=== PATIENT | male | born 1955 | race Caucasian/White ===

== ENCOUNTER 2017-10-28 09:47 | Inpatient (IN) | payer BC ==
[~2017-10-28] VITALS: Ht 175.3 cm; Wt 98.9 kg
[2017-10-28] MEDS ORDERED: SODIUM CHLORIDE 0.9% 1000ML 1,000 ML IV STA (09:55)
[2017-10-28] MEDS ORDERED: ONDANSETRON INJ 2 MG/ML 2 ML VIAL IV STA (09:55)
[2017-10-28] MEDS ORDERED: OPTIRAY 320 IV PRN (10:15)
--- NOTE | 2017-10-28 10:21 | DIAGNOSTIC IMAGING REPORT ---
SINGLE VIEW CHEST CLINICAL HISTORY: Generalized abdominal pain. FINDINGS: An AP, portable, upright chest radiograph is obtained. No prior studies are available for comparison at the time of dictation. The examination is degraded by portable technique and patient rotation. The heart is enlarged and there is atherosclerotic calcification of the thoracic aorta. The pulmonary vasculature is noncongested. Nonspecific interstitial thickening is likely chronic. There is mild elevation of left hemidiaphragm with minimal left basilar airspace opacities. The lungs are otherwise clear. No large pleural effusion or pneumothorax is seen. An accessory azygous fissure is suggested. The skeletal structures are osteopenic. The bony thorax is grossly intact. IMPRESSION: 1. Cardiomegaly without radiographic evidence of congestive failure. 2. Minimal left basilar opacities likely represent atelectasis. Clinical correlation will be required. Electronically signed by: Karlo Santos M.D. 10/28/2017 10:20 AM Dictated Date/Time: 10/28/2017 10:18 AM
[2017-10-28 10:38] LABS: BASO % 0.4 %; BASO ABS # 0.02 K/uL (0-0.2); EOS % 1.4 %; EOS ABS # 0.08 K/uL (0-0.5); HEMATOCRIT 41.3 % (42-52); HEMOGLOBIN 14.2 g/dL (14.0-18.0); IG# 0.02 K/uL (0.00-0.02); LYMPH ABS # 1.23 K/uL (1.2-3.4); MEAN CORPUSCULAR HEMOGLOBIN 35.8 pg (25-34); MEAN CORPUSCULAR HGB CONC 34.4 g/dl (32-36); MEAN PLATELET VOLUME 9.5 fL (7.4-10.4); MONO % 5.5 %; MONO ABS # 0.31 K/uL (0.11-0.59); NEUT % 70.3 %; NEUT ABS # 3.93 K/uL (1.4-6.5); PLATELET COUNT 195 K/uL (130-400); RED CELL DISTRIBUTION WIDTH CV 13.2 % (11.5-14.5); RED CELL DISTRIBUTION WIDTH SD 49.9 fL (36.4-46.3); WHITE BLOOD COUNT 5.59 K/uL (4.8-10.8)
[2017-10-28 10:46] LABS: PTT PATIENT 23.2 SECONDS (21.0-31.0)
[2017-10-28 10:53] LABS: ALBUMIN 3.5 gm/dl (3.4-5.0); ALT/SGPT 44 U/L (12-78); AST/SGOT 37 U/L (15-37); BLOOD UREA NITROGEN 16 mg/dl (7-18); CALCIUM 8.9 mg/dl (8.5-10.1); CARBON DIOXIDE 27 mmol/L (21-32); CREATININE 1.11 mg/dl (0.60-1.40); GLUCOSE 166 mg/dl (70-99); LIPASE 72 U/L (73-393); POTASSIUM 3.3 mmol/L (3.5-5.1); SODIUM 139 mmol/L (136-145)
[2017-10-28] MEDS ORDERED: OMEP40CA41 PO (10:58)
[2017-10-28] MEDS ORDERED: LMTHP PO (10:58)
[2017-10-28 10:59] LABS: ALKALINE PHOSPHATASE 61 U/L (45-117); CKMB 1.1 ng/ml (0.5-3.6); TOTAL PROTEIN 7.2 gm/dl (6.4-8.2)
[2017-10-28] MEDS ORDERED: SUNI37.5 PO (11:02)
[2017-10-28] MEDS ORDERED: ONDANSETRON INJ 2 MG/ML 2 ML VIAL ONE (13:19)
[2017-10-28] MEDS ORDERED: NURSING VERBAL MED ORDER ONE (13:30)
--- NOTE | 2017-10-28 13:49 | DIAGNOSTIC IMAGING REPORT ---
HEAD WITHOUT CONTRAST (CT) CLINICAL HISTORY: 61 years-old Male presenting with near syncope, numbness. TECHNIQUE: Multidetector CT imaging of the head was performed without the use of intravenous contrast. IV contrast: None. A dose lowering technique was used consistent with the principles of ALARA (as low as reasonably achievable). COMPARISON: None. CT DOSE (mGy.cm): The estimated cumulative dose is 2436.[address] abdomen and pelvis. FINDINGS: Casing In Line Setter topogram: Unremarkable. Ventricles and sulci normal in size. Brain parenchyma normal in appearance with preserved retana-white differentiation. No mass effect or midline shift. No hemorrhage or acute territorial infarct. No extra-axial fluid collection. Paranasal sinuses and mastoid air cells clear. Calvarium intact. IMPRESSION: 1. No acute intracranial abnormality. Electronically signed by: Akhil Aldana M.D. 10/28/2017 1:48 PM Dictated Date/Time: 10/28/2017 1:46 PM
--- NOTE | 2017-10-28 14:01 | DIAGNOSTIC IMAGING REPORT ---
CT ABD/PELVIS IV AND ORAL CONT CLINICAL HISTORY: vomiting, previous gastrectomy for tumor COMPARISON STUDY: None. TECHNIQUE: Following the IV administration of 118 mL of Optiray-320, CT scan of the abdomen and pelvis was performed from the lung bases to the proximal femurs. Images are reviewed in the axial, sagittal, and coronal planes. IV contrast was administered. There is an equivocal infiltration, and a new IV site was chosen. This explains the contrast excretion within the left kidney. A dose lowering technique was utilized adhering to the principles of ALARA. CT DOSE: 2436.58 mGy.cm FINDINGS: Lower chest: The heart is normal in size and configuration, without pericardial effusion. The lung bases and pleural spaces are clear. Liver: Postsurgical changes are present within the right lobe. There is a 36 mm hypodense mass within the right lobe of the liver. Given history of prior neoplasm, this is viewed as suspicious for a metastatic deposit. There is very minimal ductal dilatation adjacent to the postsurgical changes in the right lobe. Gallbladder: Surgically absent Spleen: Normal in size and attenuation. Pancreas: Unremarkable. Adrenal glands: There is a 21 mm left adrenal myelolipoma Kidneys: There is a diminished right-sided nephrogram. There is right-sided hydronephrosis. There is right-sided hydroureter. No right renal or ureteral calculi are visualized. The etiology of the obstruction is therefore unclear. There is an 11 mm left renal cyst. Bowel: There are no transition zones indicate bowel obstruction. There is borderline rectal wall thickening which may simply be secondary to incomplete distention. There is extensive sigmoid diverticulosis. No acute peridiverticular inflammatory changes are visualized. There are additional areas of borderline wall thickening involving the descending colon, transverse colon, and ascending colon. Peritoneum: There is no intraperitoneal free air or abdominal ascites. Vasculature: The abdominal aorta is normal in course and caliber. Adenopathy: None. Pelvic viscera: The bladder, and pelvic viscera are unremarkable. Skeletal structures: No destructive osseous lesions are seen. IMPRESSION: 1. Right renal obstruction. No ureteral calculus is visualized, and therefore the etiology of the obstruction is unclear. The findings could be secondary to a radiolucent calculus, recently passed calculus, or neoplasm. Close follow-up will be necessary 2. 33 mm mass within the right lobe of the liver. A metastatic deposit must be considered given the history of a prior primary malignancy 3. Left adrenal myelolipoma 4. Postsurgical changes involve the stomach. No evidence of bowel obstruction. No evidence of free air. Normal appendix. Diverticulosis. No evidence of acute diverticulitis 5. Borderline diffuse colonic wall thickening. Electronically signed by: Parveen Cruz M.D. 10/28/2017 2:00 PM Dictated Date/Time: 10/28/2017 1:46 PM
--- NOTE | 2017-10-28 14:41 | EMERGENCY ROOM VISIT NOTE ---
History Report prepared by Zaria: Kristopher Ashley Under the Supervision of: Dr. Luis Carlos Duke D.O. First contact with patient: 09:51 Stated Complaint: ABDOMINAL PAIN History of Present Illness The patient is a 61 year old male who presents to the Emergency Room with complaints of constant diffuse abdominal pain beginning 1.5 hours ago. He has a history of gastrointestinal stromal tumor (s/p surgery to remove tumor). He is currently receiving chemotherapy for his cancer. The patient states that he has been experiencing nausea and vomiting as well. He rates his current pain as a 10/10 in severity. Per , the patient had an episode of diaphoresis, arm numbness, and visual changes while going to the bathroom this morning. The patient denies headaches, chest pain, fevers, or leg swelling. He reports that he had dark guerrero colored stools last week. He denies recent Pepto Bismol use, but has been taking over the counter anti-diarrheals. The patient denies recent antibiotic use. He adds that he feels that he needs to urinate but is unable. Source of History: patient Onset: 1.5 hours ago Position: abdomen (diffuse) Symptom Intensity: 10/10 Timing: constant Associated Symptoms: + diaphoresis, + nausea, + vomiting, + urinary symptoms (inability to urinate), + numbness (arm), No fevers, No headache, No chest pain Note: Positive: visual changes. Negative: leg swelling. Review of Systems See HPI for pertinent positives & negatives. A total of 10 systems reviewed and were otherwise negative. Past Medical & Surgical Medical Problems: (1) GIST (gastrointestinal stromal tumor), malignant Surgical Problems: (1) History of partial gastrectomy (2) Hx of cholecystectomy Family History No pertinent family history stated. Social History Marital Status: Housing Status: lives with family Current/Historical Medications Scheduled Omeprazole (Prilosec), 40 MG PO DAILY Ranitidine (Zantac), 150 MG PO DAILY Sildenafil Citrate (Viagra), 100 MG PO PRN Sunitinib Malate (Sutent), 37.5 MG PO DAILY Scheduled PRN Diphenoxylate/Atropine (Diphenoxylate/Atropine 2.5-0.025 mg), 1 TAB PO QID PRN for Diarrhea Allergies Coded Allergies: Codeine (Unverified Allergy, Unknown, GI SYMPTOMS, 10/28/17) Physical Exam Vital Signs Date Time Temp Pulse Resp B/P (MAP) Pulse Ox O2 Delivery O2 Flow Rate FiO2 10/28/17 15:37 85 20 177/100 93 Room Air 10/28/17 14:17 88 22 174/94 95 Room Air 10/28/17 13:17 71 26 95 Room Air 10/28/17 13:16 102 10/28/17 13:01 160/90 10/28/17 12:47 71 23 10/28/17 12:46 67 20 163/87 100 Room Air 10/28/17 12:31 163/87 10/28/17 12:26 67 22 176/82 10/28/17 12:17 68 9 10/28/17 12:01 176/82 10/28/17 11:47 82 21 10/28/17 11:31 160/79 10/28/17 11:17 74 25 10/28/17 11:01 162/82 10/28/17 10:47 64 20 168/87 100 10/28/17 10:47 69 23 97 10/28/17 10:31 168/87 10/28/17 10:20 173/96 10/28/17 10:18 184/95 10/28/17 09:57 36.5 65 20 155/104 100 Room Air 10/28/17 09:55 66 10/28/17 09:50 155/104 Physical Exam GENERAL: Patient is awake, alert, and in no acute distress. Mildly anxious appearing. EYES: The conjunctivae are clear. The pupils are round and reactive. EARS, NOSE, MOUTH AND THROAT: The nose is without any evidence of any deformity. Mucous membranes are moist tongue is midline NECK: The neck is nontender and supple. RESPIRATORY: Normal respiratory effort is noted there is no evidence of wheezing rhonchi or rales CARDIOVASCULAR: Regular rate and rhythm noted there no murmurs rubs or gallops normal S1 normal S2 GASTROINTESTINAL: Moderately distended and diffusely tender. Guarding noted in the right middle and RUQ. No suprapubic tenderness to palpation. MUSCULOSKELETAL/EXTREMITIES: There is no evidence of gross deformity full range of motion is noted in the hips and shoulders SKIN: There is no obvious evidence of any rash. There are no petechiae, pallor or cyanosis noted. Trace pedal edema bilaterally. NEUROLOGIC: Patient is awake alert and oriented x3. Gait is slow but steady. Medical Decision & Procedures ER Provider Diagnostic Interpretation: Radiology results as stated below per my review and radiologist interpretation: SINGLE VIEW CHEST FINDINGS: An AP, portable, upright chest radiograph is obtained. No prior studies are available for comparison at the time of dictation. The examination is degraded by portable technique and patient rotation. The heart is enlarged and there is atherosclerotic calcification of the thoracic aorta. The pulmonary vasculature is noncongested. Nonspecific interstitial thickening is likely chronic. There is mild elevation of left hemidiaphragm with minimal left basilar airspace opacities. The lungs are otherwise clear. No large pleural effusion or pneumothorax is seen. An accessory azygous fissure is suggested. The skeletal structures are osteopenic. The bony thorax is grossly intact. IMPRESSION: 1. Cardiomegaly without radiographic evidence of congestive failure. 2. Minimal left basilar opacities likely represent atelectasis. Clinical correlation will be required. Electronically signed by: Karlo Santos M.D. 10/28/2017 10:20 AM HEAD WITHOUT CONTRAST (CT) FINDINGS: Commutator Tester topogram: Unremarkable. Ventricles and sulci normal in size. Brain parenchyma normal in appearance with preserved retana-white differentiation. No mass effect or midline shift. No hemorrhage or acute territorial infarct. No extra-axial fluid collection. Paranasal sinuses and mastoid air cells clear. Calvarium intact. IMPRESSION: 1. No acute intracranial abnormality. Electronically signed by: Akhil lAdana M.D. 10/28/2017 1:[address] ABD/PELVIS IV AND ORAL CONT FINDINGS: Lower chest: The heart is normal in size and configuration, without pericardial effusion. The lung bases and pleural spaces are clear. Liver: Postsurgical changes are present within the right lobe. There is a 36 mm hypodense mass within the right lobe of the liver. Given history of prior neoplasm, this is viewed as suspicious for a metastatic deposit. There is very minimal ductal dilatation adjacent to the postsurgical changes in the right lobe. Gallbladder: Surgically absent Spleen: Normal in size and attenuation. Pancreas: Unremarkable. Adrenal glands: There is a 21 mm left adrenal myelolipoma Kidneys: There is a diminished right-sided nephrogram. There is right-sided hydronephrosis. There is right-sided hydroureter. No right renal or ureteral calculi are visualized. The etiology of the obstruction is therefore unclear. There is an 11 mm left renal cyst. Bowel: There are no transition zones indicate bowel obstruction. There is borderline rectal wall thickening which may simply be secondary to incomplete distention. There is extensive sigmoid diverticulosis. No acute peridiverticular inflammatory changes are visualized. There are additional areas of borderline wall thickening involving the descending colon, transverse colon, and ascending colon. Peritoneum: There is no intraperitoneal free air or abdominal ascites. Vasculature: The abdominal aorta is normal in course and caliber. Adenopathy: None. Pelvic viscera: The bladder, and pelvic viscera are unremarkable. Skeletal structures: No destructive osseous lesions are seen. IMPRESSION: 1. Right renal obstruction. No ureteral calculus is visualized, and therefore the etiology of the obstruction is unclear. The findings could be secondary to a radiolucent calculus, recently passed calculus, or neoplasm. Close follow-up will be necessary 2. 33 mm mass within the right lobe of the liver. A metastatic deposit must be considered given the history of a prior primary malignancy 3. Left adrenal myelolipoma 4. Postsurgical changes involve the stomach. No evidence of bowel obstruction. No evidence of free air. Normal appendix. Diverticulosis. No evidence of acute diverticulitis 5. Borderline diffuse colonic wall thickening. Electronically signed by: Parveen Cruz M.D. 10/28/2017 2:00 PM Laboratory Results 10/28/17 10:30 Red Blood Count 3.97, Mean Corpuscular Volume 104.0, Mean Corpuscular Hemoglobin 35.8, Mean Corpuscular Hemoglobin Concent 34.4, Mean Platelet Volume 9.5, Neutrophils (%) (Auto) 70.3, Lymphocytes (%) (Auto) 22.0, Monocytes (%) ( Auto) 5.5, Eosinophils (%) (Auto) 1.4, Basophils (%) (Auto) 0.4, Neutrophils # ( Auto) 3.93, Lymphocytes # (Auto) 1.23, Monocytes # (Auto) 0.31, Eosinophils # ( Auto) 0.08, Basophils # (Auto) 0.02 10/28/17 10:30 Test 10/28/17 10:30 10/28/17 12:15 White Blood Count 5.59 K/uL (4.8-10.8) Red Blood Count 3.97 M/uL (4.7-6.1) Hemoglobin 14.2 g/dL (14.0-18.0) Hematocrit 41.3 % (42-52) Mean Corpuscular Volume 104.0 fL (80-100) Mean Corpuscular Hemoglobin 35.8 pg (25-34) Mean Corpuscular Hemoglobin Concent 34.4 g/dl (32-36) Platelet Count 195 K/uL (130-400) Mean Platelet Volume 9.5 fL (7.4-10.4) Neutrophils (%) (Auto) 70.3 % Lymphocytes (%) (Auto) 22.0 % Monocytes (%) (Auto) 5.5 % Eosinophils (%) (Auto) 1.4 % Basophils (%) (Auto) 0.4 % Neutrophils # (Auto) 3.93 K/uL (1.4-6.5) Lymphocytes # (Auto) 1.23 K/uL (1.2-3.4) Monocytes # (Auto) 0.31 K/uL (0.11-0.59) Eosinophils # (Auto) 0.08 K/uL (0-0.5) Basophils # (Auto) 0.02 K/uL (0-0.2) RDW Standard Deviation 49.9 fL (36.4-46.3) RDW Coefficient of Variation 13.2 % (11.5-14.5) Immature Granulocyte % (Auto) 0.4 % Immature Granulocyte # (Auto) 0.02 K/uL (0.00-0.02) Prothrombin Time 10.0 SECONDS (9.0-12.0) Prothromb Time International Ratio 1.0 (0.9-1.1) Activated Partial Thromboplast Time 23.2 SECONDS (21.0-31.0) Partial Thromboplastin Ratio 0.9 Anion Gap 8.0 mmol/L (3-11) Est Creatinine Clear Calc Drug Dose 92.8 ml/min Estimated GFR () 82.6 Estimated GFR (Non- 71.3 BUN/Creatinine Ratio 14.7 (10-20) Calcium Level 8.9 mg/dl (8.5-10.1) Total Bilirubin 0.6 mg/dl (0.2-1) Direct Bilirubin 0.2 mg/dl (0-0.2) Aspartate Amino Transf (AST/SGOT) 37 U/L (15-37) Alanine Aminotransferase (ALT/SGPT) 44 U/L (12-78) Alkaline Phosphatase 61 U/L (45-117) Total Creatine Kinase 94 U/L (39-308) Creatine Kinase MB 1.1 ng/ml (0.5-3.6) Creatine Kinase MB Ratio 1.2 (0-3.0) Troponin I < 0.015 ng/ml (0-0.045) Total Protein 7.2 gm/dl (6.4-8.2) Albumin 3.5 gm/dl (3.4-5.0) Lipase 72 U/L (73-393) Urine Color DK YELLOW Urine Appearance CLEAR (CLEAR) Urine pH 5.5 (4.5-7.5) Urine Specific Cubero 1.024 (1.000-1.030) Urine Protein 2+ (NEG) Urine Glucose (UA) TRACE (NEG) Urine Ketones 1+ (NEG) Urine Occult Blood 1+ (NEG) Urine Nitrite NEG (NEG) Urine Bilirubin NEG (NEG) Urine Urobilinogen POS (NEG) Urine Leukocyte Esterase NEG (NEG) Urine WBC (Auto) 1-5 /hpf (0-5) Urine RBC (Auto) 0-4 /hpf (0-4) Urine Hyaline Casts (Auto) 10-30 /lpf (0-5) Urine Epithelial Cells (Auto) 20-30 /lpf (0-5) Urine Bacteria (Auto) NEG (NEG) Urine Mucus PRESENT (NONE PRSENT) Urine Yeast (Auto) (NONE PRSENT) Laboratory results per my review. Medications Administered Medications (Trade) Dose Ordered Sig/Pina Route Start Time Stop Time Status Last Admin Dose Admin Sodium Chloride 1,000 ml @ 999 mls/hr Q1H1M STAT IV 10/28/17 09:55 10/28/17 10:55 DC 10/28/17 10:12 999 MLS/HR Ondansetron HCl (Zofran Inj) 4 mg NOW STAT IV 10/28/17 09:55 10/28/17 09:57 DC 10/28/17 10:12 4 MG Ondansetron HCl (Zofran Inj) 4 mg STK-MED ONCE .ROUTE 10/28/17 13:19 10/28/17 13:20 DC 10/28/17 13:25 4 MG Levofloxacin (Levaquin / D5W) 750 mg NOW STAT IV 10/28/17 14:52 10/28/17 14:53 DC 10/28/17 15:37 750 MG ECG Per My Interpretation Indication: abdominal pain Rate (beats per minute): 61 Rhythm: normal sinus Findings: no ectopy, other (No acute ST segment abnormalities. ) Comparison ECG Date: no prior available ED Course 0953: The patient was evaluated in room A11B. A complete history and physical examination were performed. 0955: Ordered Zofran Inj 4 mg IV, NSS 1,000 ml @ 999 mls/hr IV. 1319: Ordered Zofran Inj 4 mg IV. 1420: Upon reevaluation, the patient is resting. He still feels unwell. I discussed results and treatment plan with him. He verbalizes agreement and understanding. I spoke with Nadia Logan PA-C of the [facility]. The patient will be evaluated for further management and care. Medical Decision Differential diagnosis: Etiologies such as appendicitis, diverticulitis, PUD, biliary pathology, UTI, pancreatitis, obstruction, mesenteric ischemia, aortic pathology, infections, inflammatory bowel disease, renal colic, as well as others were entertained. Nursing notes reviewed. Additional history is obtained from the patient's significant other. The patient is a 61-year-old male who presented to the emergency department for an evaluation of right-sided abdominal pain and vomiting. The patient has a history of an intra-abdominal tumor which was removed some years ago that also required some degree of a gastrectomy. Initially I thought the patient's presentation was consistent with a bowel obstruction however he was found to have a renal obstruction on the right which I feel explains his right-sided pain. He was treated with IV fluids IV pain medication and IV anti-medics. He was also given IV antibiotics. I discussed his case with the [facility]-call urology group [facility] have agreed to evaluate the patient in the emergency department for further management and disposition. I discussed patient's laboratory and radiographic studies with him and his significant other. Medication Reconcilliation Current Medication List: was personally reviewed by me Blood Pressure Screening Patient's blood pressure: Elevated blood pressure Blood pressure disposition: Referred to PCP Consults Time Called: 1420 Consulting Physician: Munira HOLT - Urology Returned Call: [phone] I discussed the patient's case with Munira HOLT. She will evaluate the patient. Additional Consults: Time Called: 1425 Consulted Physician: Nadia Logan PA-C - [facility] Hospitalist Returned Call: [phone] Additional Comments: I discussed the patient's case with Nadia Logan PA-C. The patient will be evaluated for further management. Impression Primary Impression: Abdominal pain Additional Impressions: Nausea Vomiting Obstruction of kidney Scribe Attestation The scribe's documentation has been prepared under my direction and personally reviewed by me in its entirety. I confirm that the note above accurately reflects all work, treatment, procedures, and medical decision making performed by me. Departure Information Dispostion Being Evaluated By Hospitalist Referrals No Doctor, Assigned (PCP) Problem Qualifiers Primary Impression: Abdominal pain Abdominal location: right upper quadrant Qualified Codes: R10.11 - Right upper quadrant pain Additional Impressions: Vomiting Vomiting type: unspecified Vomiting Intractability: non-intractable Nausea presence: with nausea Qualified Codes: R11.2 - Nausea with vomiting, unspecified
[2017-10-28] MEDS ORDERED: LEVAQUIN 750MG / 150ML D5W IV STA (14:52)
[2017-10-28] MEDS ORDERED: POTASSIUM CHLORIDE INJ 40 MEQ in SODIUM CHLORIDE 0.9% 1000ML 1,000 ML IV SCH (16:15)
[2017-10-28] MEDS ORDERED: MoRPHine SULFATE 2 MG/ML CARP IV PRN (16:15)
[2017-10-28] MEDS ORDERED: ACETAMINOPHEN 325 MG TAB ONE (16:20)
[2017-10-28] MEDS ORDERED: MoRPHine SULFATE 2 MG/ML CARP ONE (16:20)
[2017-10-28] MEDS ORDERED: AMLODIPINE BESYLATE 5 MG TAB PO ONE (16:30)
[2017-10-28] MEDS ORDERED: RANI150T85 PO (16:37)
[2017-10-28] MEDS ORDERED: SILD100T PO (16:37)
[2017-10-28] MEDS ORDERED: DIPHENOXYLATE/ATROPINE 2.5/0.025MG TAB PO PRN (16:45)
--- NOTE | 2017-10-28 17:41 | History and Physical ---
History & Physical Date & Time of Service: Oct 28, 2017 at 16:41 Chief Complaint: Abdominal Pain Primary Care Physician: Karmen Costello MD History of Present Illness Source: patient, partner, hospital records Pt is 61 y/o M with PMH GIST stromal tumor s/p removal in 2015 and current oral chemo treatment presented to ER with complaint right-sided abdominal pain and vomiting that started this morning. Patient states that last week noticed some trouble initiating urine stream, which seemed worse today. Patient states this morning developed nauseated and was vomiting, and he was on toilet trying to have BM when he started to feel lightheaded, vision neck he felt paresthesias in bilateral arms and diaphoretic and felt like was breathing faster and SOB and GLEASON. Patient states these symptoms lasted a couple minutes and then resolved and no recurrent symptoms. Denies syncopal episode. Pt from [place] and follows with [facility]. Oncologist - Dr Karmen Costello. PCP: Dr Rosales. Patient s/p removal of tumor and partial removal of part of stomach and liver. Patient's reports known "spots" on liver and spine seen on MRI in May 2017. Reports patient was to have follow-up in the next 1-2 weeks with repeat MRI to reevaluate after pt has been on sunitinib. Reports since surgery and chemo c/o chronic diarrhea and is on Lomotil and uses regularly. Denies increased diarrhea. Denies melena, hematochezia. States has otherwise been doing ok and eating and drinking ok until today. Denies known fever. Reports 2 weeks ago had URI symptoms with chills, cough, rhinorrhea which resolved. Denies dysuria, hematuria, urinary urgency or frequency, neck pain, CP, orthopnea, palpitations,choking, extremity edema, rashes. Past Medical/Surgical History Medical Problems: (1) GIST (gastrointestinal stromal tumor), malignant Surgical Problems: (1) Hx of cholecystectomy Family History Diabetes mellitus FH: CAD (coronary artery disease) FH: kidney cancer Hypertension Social History Smoking Status: Former Smoker Smokeless Tobacco Use: No Alcohol Use: none Drug Use: none Marital Status: Housing status: lives with family Allergies Coded Allergies: Codeine (Unverified Allergy, Unknown, GI SYMPTOMS, 10/28/17) Home Medications Scheduled Omeprazole (Prilosec), 40 MG PO DAILY Ranitidine (Zantac), 150 MG PO DAILY Sildenafil Citrate (Viagra), 100 MG PO PRN Sunitinib Malate (Sutent), 37.5 MG PO DAILY Scheduled PRN Diphenoxylate/Atropine (Diphenoxylate/Atropine 2.5-0.025 mg), 1 TAB PO QID PRN for Diarrhea Review of Systems See HPI for pertinent positives & negatives. All other systems reviewed and were otherwise negative Physical Exam Vital Signs Date Time Temp Pulse Resp B/P (MAP) Pulse Ox O2 Delivery O2 Flow Rate FiO2 10/28/17 15:37 85 20 177/100 93 Room Air 10/28/17 14:17 88 22 174/94 95 Room Air 10/28/17 13:17 71 26 95 Room Air 10/28/17 13:16 102 10/28/17 13:01 160/90 10/28/17 12:47 71 23 10/28/17 12:46 67 20 163/87 100 Room Air 10/28/17 12:31 163/87 10/28/17 12:26 67 22 176/82 10/28/17 12:17 68 9 10/28/17 12:01 176/82 10/28/17 11:47 82 21 10/28/17 11:31 160/79 10/28/17 11:17 74 25 10/28/17 11:01 162/82 10/28/17 10:47 64 20 168/87 100 10/28/17 10:47 69 23 97 10/28/17 10:31 168/87 10/28/17 10:20 173/96 10/28/17 10:18 184/95 10/28/17 09:57 36.5 65 20 155/104 100 Room Air 10/28/17 09:55 66 10/28/17 09:50 155/104 General Appearance: + obese Head: normocephalic, atraumatic Eyes: normal inspection, sclerae normal ENT: hearing grossly normal, pharynx normal, + pertinent finding (mucous membranes moist) Neck: supple, trachea midline Respiratory/Chest: no respiratory distress, no accessory muscle use, + decreased breath sounds (no rales, rhonchi, wheezing) Cardiovascular: regular rate, rhythm, + pertinent finding (+murmur) Abdomen/GI: normal bowel sounds, soft, + pertinent finding (abdomen and flank non-tender to palpation at this time) Extremities/Musculoskelatal: no calf tenderness, normal capillary refill, no pedal edema Neurologic/Psych: alert, normal mood/affect, oriented x 3 Skin: normal color, warm/dry Diagnostics Laboratory Results Results Past 24 Hours Test 10/28/17 10:30 10/28/17 12:15 Range/Units White Blood Count 5.59 4.8-10.8 K/uL Red Blood Count 3.97 4.7-6.1 M/uL Hemoglobin 14.2 14.0-18.0 g/dL Hematocrit 41.3 42-52 % Mean Corpuscular Volume 104.0 80-100 fL Mean Corpuscular Hemoglobin 35.8 25-34 pg Mean Corpuscular Hemoglobin Concent 34.4 32-36 g/dl Platelet Count 195 130-400 K/uL Mean Platelet Volume 9.5 7.4-10.4 fL Neutrophils (%) (Auto) 70.3 % Lymphocytes (%) (Auto) 22.0 % Monocytes (%) (Auto) 5.5 % Eosinophils (%) (Auto) 1.4 % Basophils (%) (Auto) 0.4 % Neutrophils # (Auto) 3.93 1.4-6.5 K/uL Lymphocytes # (Auto) 1.23 1.2-3.4 K/uL Monocytes # (Auto) 0.31 0.11-0.59 K/uL Eosinophils # (Auto) 0.08 0-0.5 K/uL Basophils # (Auto) 0.02 0-0.2 K/uL RDW Standard Deviation 49.9 36.4-46.3 fL RDW Coefficient of Variation 13.2 11.5-14.5 % Immature Granulocyte % (Auto) 0.4 % Immature Granulocyte # (Auto) 0.02 0.00-0.02 K/uL Prothrombin Time 10.0 9.0-12.0 SECONDS Prothromb Time International Ratio 1.0 0.9-1.1 Activated Partial Thromboplast Time 23.2 21.0-31.0 SECONDS Partial Thromboplastin Ratio 0.9 Sodium Level 139 136-145 mmol/L Potassium Level 3.3 3.5-5.1 mmol/L Chloride Level 104 98-107 mmol/L Carbon Dioxide Level 27 21-32 mmol/L Anion Gap 8.0 3-11 mmol/L Blood Urea Nitrogen 16 7-18 mg/dl Creatinine 1.11 0.60-1.40 mg/dl Est Creatinine Clear Calc Drug Dose 92.8 ml/min Estimated GFR () 82.6 Estimated GFR (Non- 71.3 BUN/Creatinine Ratio 14.7 10-20 Random Glucose 166 70-99 mg/dl Calcium Level 8.9 8.5-10.1 mg/dl Total Bilirubin 0.6 0.2-1 mg/dl Direct Bilirubin 0.2 0-0.2 mg/dl Aspartate Amino Transf (AST/SGOT) 37 15-37 U/L Alanine Aminotransferase (ALT/SGPT) 44 12-78 U/L Alkaline Phosphatase 61 45-117 U/L Total Creatine Kinase 94 39-308 U/L Creatine Kinase MB 1.1 0.5-3.6 ng/ml Creatine Kinase MB Ratio 1.2 0-3.0 Troponin I < 0.015 0-0.045 ng/ml Total Protein 7.2 6.4-8.2 gm/dl Albumin 3.5 3.4-5.0 gm/dl Lipase 72 73-393 U/L Urine Color DK YELLOW Urine Appearance CLEAR CLEAR Urine pH 5.5 4.5-7.5 Urine Specific [place] 1.024 1.000-1.030 Urine Protein 2+ NEG Urine Glucose (UA) TRACE NEG Urine Ketones 1+ NEG Urine Occult Blood 1+ NEG Urine Nitrite NEG NEG Urine Bilirubin NEG NEG Urine Urobilinogen POS NEG Urine Leukocyte Esterase NEG NEG Urine WBC (Auto) 1-5 0-5 /hpf Urine RBC (Auto) 0-4 0-4 /hpf Urine Hyaline Casts (Auto) 10-30 0-5 /lpf Urine Epithelial Cells (Auto) 20-30 0-5 /lpf Urine Bacteria (Auto) NEG NEG Urine Mucus PRESENT NONE PRSENT Urine Yeast (Auto) NONE PRSENT Microbiology Results 10/28/17 Urine Culture, Received Pending Diagnostic Radiology CXR: IMPRESSION: 1. Cardiomegaly without radiographic evidence of congestive failure. 2. Minimal left basilar opacities likely represent atelectasis. Clinical correlation will be required. CT ABD/PELVIS: IMPRESSION: 1. Right renal obstruction. No ureteral calculus is visualized, and therefore the etiology of the obstruction is unclear. The findings could be secondary to a radiolucent calculus, recently passed calculus, or neoplasm. Close follow-up will be necessary 2. 33 mm mass within the right lobe of the liver. A metastatic deposit must be considered given the history of a prior primary malignancy 3. Left adrenal myelolipoma 4. Postsurgical changes involve the stomach. No evidence of bowel obstruction. No evidence of free air. Normal appendix. Diverticulosis. No evidence of acute diverticulitis 5. Borderline diffuse colonic wall thickening. CT HEAD: IMPRESSION: 1. No acute intracranial abnormality EKG EKG: NSR, Rate 61 read by agricultural appraiser: Normal sinus rhythm Minimal voltage criteria for LVH, may be normal variant Borderline ECG No previous ECGs available Confirmed by ERIN CHOPRA MD ([id number]) on 10/28/2017 4:03:05 PM Impression Assessment and Plan R RENAL OBSTRUCTION/ABDOMINAL PAIN/VOMITING Pt with onset abdominal pain and vomiting this morning. In ER No leukocytosis. Afebrile. Normal lipase. U/A appears contaminated. Pt given zofran and Levaquin in ER. CT ABD/PELVIS: IMPRESSION:1. Right renal obstruction. No ureteral calculus is visualized. 2. 33 mm mass within the right lobe of the liver. A metastatic deposit must be considered given the history of a prior primary malignancy. 3. Left adrenal myelolipoma. 4. Postsurgical changes involve the stomach. No evidence of bowel obstruction. No evidence of free air. Normal appendix. Diverticulosis. No evidence of acute diverticulitis. 5. Borderline diffuse colonic wall thickening. -urine culture pending -holding on additional antibiotics at this time until urine culture -morphine prn pain -zofran prn N/V -renal U/S -clear liquids at this time -cbc, prp in am -urology consulted - spoke to Munira Cunningham suggested urine culture, bladder scan and urology to plan to follow tomorrow am. Informed urologist medication aide at 1830 HTN Denies hx HTN, not on out pt BP meds. BP: 174/94. May be secondary to pain -Labetalol 10mg IV Q6H prn SBP>170 or DBP>100 -amlodipine 5mg po now and once in morning -continue to monitor, may need additional med adjustments PRESYNCOPE Pt reports lightheaded/diaphoresis with BM this am consistent with pre-syncope, probable vasovagal. Negative CT head. EKG: NSR, no ST elevations noted, negative troponin. No further symptoms -monitor HYPOKALEMIA K: 3.3 -replace and monitor electrolytes HX GIST S/P SURGERY On oral chemo. Follows with [facility] - oncologist Dr Karmen Costello. Known liver lesions and spinal lesions previously. -holding oral chemo currently GERD -continue PPI, H2 piter DVT Prophylaxis -SCDs Disposition admit tele Full Code Follows with Dr Rosales in [place] for routine care Pt was seen with Dr Gurrola. See addendum Attending Note: Patient is a 61 yr male with PMH of Stromal tumor S/P surgery and currently on chemotherapy and other problems presents with history of abdominal pain, nausea , vomiting and Obstructive Uropathy. Patient reports chronic diarrhea secondary to chemotherapy.CT adomen showed right renal obstruction but no clear etiology could be identified. Patient condition was discussed with Urologist global compensation analyst. Physical Exam: General Appearance:Obese, no apparent distress Head: normocephalic, Atraumatic Eyes: normal inspection, EOMI, PERRL Neck: supple, Trachea midline Respiratory/Chest: Normal breath sounds, CTA Cardiovascular: S1, S2, +systolic murmur Abdomen/GI:Soft, Non tender, Bowel sounds present Extremities/Musculoskelatal:normal inspection, no edema Neurologic/Psych:AAOX3, grossly no focal neurological deficits Skin:normal color,warm, Healed surgical scar on abdomen Assessment and Plan: Abdominal Pain/Nausea and Vomiting: Likely secondary to Right renal function Unsure if patient has Translucent Stone or Passed stone Or tumor obstructing Bladder Scan PRN IV fluids, Clear liquid diet 1 dose of Flomax given Urology consulted Check renal ultrasound Pain control Hypokalemia: Replace and monitor I personally reviewed the record. Patient is interviewed and examined at bedside. Patient's care is coordinated with Nadia Logan PA-C. Please refer to the documentation above for details of patient's presentation and for discussion of other issues. Resuscitation Status full code VTE Prophylaxis Will order VTE Prophylaxis: Yes
[2017-10-28 18:00] VITALS: BP 152/109; PULSE 86; TEMP 36.7; O2SAT 95; Ht 175.3 cm; Wt 98.9 kg
[2017-10-28] MEDS ORDERED: PROMETHAZINE HCL INJ 25 MG in SODIUM CHLORIDE 0.9% 50ML 50 ML IV PRN (18:15)
[2017-10-28] MEDS ORDERED: TAMSULOSIN HCL 0.4 MG CAP PO ONE (18:15)
[2017-10-28 18:19] VITALS: BP 152/109; PULSE 86; TEMP 36.7
[2017-10-28 18:30] VITALS: O2SAT 95
[2017-10-28] MEDS: ONDANSETRON INJ 2 MG/ML 2 ML VIAL IV PRN (19:39)
[2017-10-28 19:55] VITALS: BP 172/97; PULSE 87; TEMP 36.7; O2SAT 97
--- NOTE | 2017-10-28 21:00 | DIAGNOSTIC IMAGING REPORT ---
RENAL ULTRASOUND HISTORY: Follow-up right renal obstruction and hydronephrosis. COMPARISON: Abdomen and pelvis CT 10/28/2017. FINDINGS: Right kidney: 13.8 cm. Mild to moderate hydronephrosis, unchanged. Normal corticomedullary differentiation and cortical thickness. Left kidney: 12.3 cm. A 1.2 cm upper pole cyst. No hydronephrosis. Normal corticomedullary differentiation and cortical thickness. Bladder: No bladder wall thickening. The right ureteral jet was not identified. The left ureteral jet is identified. IMPRESSION: 1. No change in the mild to moderate right-sided hydronephrosis. The right ureteral jet was not identified. 2. No left-sided hydronephrosis. Electronically signed by: Pedro Ascencio M.D. 10/28/2017 8:59 PM Dictated Date/Time: 10/28/2017 8:57 PM
[2017-10-28] MEDS: LABETALOL HCL IV 5 MG/ML 20ML IV PRN (21:12)
[2017-10-28 22:04] VITALS: BP 154/87; PULSE 78
[2017-10-28 23:45] VITALS: BP 160/91; PULSE 80; TEMP 37; O2SAT 96
[2017-10-29] VITALS (10 sets, daily range): BP systolic 115–196; BP diastolic 70–113; PULSE 64–75; TEMP 36.3–36.7; O2SAT 96–99
[2017-10-29] MEDS: LABETALOL HCL IV 5 MG/ML 20ML IV PRN (04:14)
[2017-10-29] MEDS: ONDANSETRON INJ 2 MG/ML 2 ML VIAL IV PRN (04:19)
[2017-10-29 06:47] LABS: HEMATOCRIT 41.5 % (42-52); HEMOGLOBIN 14.1 g/dL (14.0-18.0); MEAN PLATELET VOLUME 9.4 fL (7.4-10.4); PLATELET COUNT 155 K/uL (130-400); RED CELL DISTRIBUTION WIDTH CV 13.4 % (11.5-14.5); RED CELL DISTRIBUTION WIDTH SD 50.5 fL (36.4-46.3); WHITE BLOOD COUNT 6.63 K/uL (4.8-10.8)
[2017-10-29] MEDS: ACETAMINOPHEN 325 MG TAB PO PRN (07:17)
[2017-10-29 07:24] LABS: CALCIUM 8.5 mg/dl (8.5-10.1); CREATININE 1.25 mg/dl (0.60-1.40); POTASSIUM 3.7 mmol/L (3.5-5.1)
[2017-10-29] MEDS: RANITIDINE HCL 150 MG TAB PO SCH ×2 (08:19→08:20)
[2017-10-29] MEDS: PANTOprazole SOD 40 MG TAB PO SCH ×2 (08:19→08:20)
[2017-10-29] MEDS ORDERED: AMLODIPINE BESYLATE 5 MG TAB PO ONE (09:00)
[2017-10-29] MEDS ORDERED: SODIUM CHLORIDE 0.9% 1000ML 1,000 ML IV SCH ×2 (12:00→13:00)
[2017-10-29] MEDS ORDERED: LOPERAMIDE HCL 2 MG CAP PO PRN (12:00)
[2017-10-29] MEDS ORDERED: HOME MED ADMINISTRATION ONE (12:00)
--- NOTE | 2017-10-29 12:48 | Urology Consultation ---
History General Date of Service: Oct 29, 2017. Chief Complaint: right flank pain, right hydronephrosis Primary Care Physician: Karmen Csotello MD Pt seen a urologist before?: No History of Present Illness Pt is 61 y/o M with PMH GIST stromal tumor s/p removal in 2016 and current oral chemo treatment presented to [facility] with c/o sudden onset right flank pain and n/ v. The pt was traveling to [facility] from [place] with his granddaughter to visit [facility] for college selection. CT showing some right hydronephrosis with no evidence of stone. Repeat u/s last evening showing persistent hydro. He reports his pain has improved since admission, but continues to c/o n/v. He also notes some difficulty voiding, although PVRs have been normal. Imaging Imaging: CT Laboratory Last 24 Hours Test 10/28/17 12:15 10/28/17 20:05 10/29/17 06:04 Urine Color DK YELLOW Urine Appearance CLEAR Urine pH 5.5 Urine Specific [place] 1.024 Urine Protein 2+ Urine Glucose (UA) TRACE Urine Ketones 1+ Urine Occult Blood 1+ Urine Nitrite NEG Urine Bilirubin NEG Urine Urobilinogen POS Urine Leukocyte Esterase NEG Urine WBC (Auto) 1-5 /hpf Urine RBC (Auto) 0-4 /hpf Urine Hyaline Casts (Auto) 10-30 /lpf Urine Epithelial Cells (Auto) 20-30 /lpf Urine Bacteria (Auto) NEG Urine Mucus PRESENT Urine Yeast (Auto) Bedside Glucose 144 mg/dl White Blood Count 6.63 K/uL Red Blood Count 4.03 M/uL Hemoglobin 14.1 g/dL Hematocrit 41.5 % Mean Corpuscular Volume 103.0 fL Mean Corpuscular Hemoglobin 35.0 pg Mean Corpuscular Hemoglobin Concent 34.0 g/dl RDW Standard Deviation 50.5 fL RDW Coefficient of Variation 13.4 % Platelet Count 155 K/uL Mean Platelet Volume 9.4 fL Sodium Level 139 mmol/L Potassium Level 3.7 mmol/L Chloride Level 106 mmol/L Carbon Dioxide Level 25 mmol/L Anion Gap 8.0 mmol/L Blood Urea Nitrogen 19 mg/dl Creatinine 1.25 mg/dl Est Creatinine Clear Calc Drug Dose 80.1 ml/min Estimated GFR () 71.6 Estimated GFR (Non- 61.8 BUN/Creatinine Ratio 15.5 Random Glucose 128 mg/dl Calcium Level 8.5 mg/dl Magnesium Level 1.8 mg/dl Problem List Medical Problems: (1) Abdominal pain Status: Acute (2) Nausea Status: Acute (3) Obstruction of kidney Status: Acute (4) Vomiting Status: Acute Past History other (GIST tumor ) Past Surgical History: cholecystectomy Family History Diabetes mellitus FH: CAD (coronary artery disease) FH: kidney cancer Hypertension Social History Hx Tobacco Use In Past Year?: No Smoking: other (former smoker ) Marital status: Housing status: lives with family Allergies Coded Allergies: Codeine (Unverified Allergy, Unknown, GI SYMPTOMS, 10/28/17) Medications Home Medications: Home Meds and Scripts Medications Dose Route/Sig Max Daily Dose Days Date Category Viagra (Sildenafil Citrate) 100 Mg Tab 100 Mg PO PRN 10/28/17 Reported Zantac (Ranitidine HCl) 150 Mg Tab 150 Mg PO DAILY 10/28/17 Reported Sutent (Sunitinib Malate) 37.5 Mg Cap 37.5 Mg PO DAILY 10/28/17 Reported Prilosec (Omeprazole) 40 Mg Cap 40 Mg PO DAILY 10/28/17 Reported Diphenoxylate/Atropine 2.5-0.025 mg (Diphenoxylate HCl/Atropine) 1 Tab Tab 1 Tab PO QID PRN 10/28/17 Reported Inpatient Medications: Current Inpatient Medications Medications (Trade) Dose Ordered Sig/Pina Route Start Time Stop Time Status Last Admin Dose Admin Ioversol (Optiray 320) 100 ml UD PRN IV 10/28/17 10:15 11/01/17 10:14 Ondansetron HCl (Zofran Inj) 4 mg Q6H PRN IV 10/28/17 16:00 11/27/17 15:59 10/29/17 04:19 4 MG Potassium Chloride 40 meq/ Sodium Chloride 1,020 ml @ 50 mls/hr [id number] IV 10/28/17 16:15 10/29/17 12:38 10/28/17 16:15 50 MLS/HR Acetaminophen (Tylenol Tab) 650 mg Q4H PRN PO 10/28/17 16:15 11/27/17 16:14 10/29/17 07:17 650 MG Morphine Sulfate (MoRPHine SULFATE INJ) 2 mg Q4 PRN IV 10/28/17 16:15 11/11/17 16:14 Labetalol HCl (Normodyne IV) 10 mg Q6 PRN IV 10/28/17 16:30 11/27/17 16:29 10/29/17 04:14 10 MG Diphenoxylate HCl/ Atropine (Lomotil Tab) 1 tab QID PRN PO 10/28/17 16:45 11/27/17 16:44 Ranitidine HCl (zANTac TAB) 150 mg DAILY PO 10/29/17 09:00 11/28/17 08:59 10/29/17 08:19 150 MG Pantoprazole Sodium (Protonix Tab) 40 mg DAILY PO 10/29/17 09:00 11/28/17 08:59 10/29/17 08:19 40 MG Promethazine HCl 25 mg/Sodium Chloride 51 ml @ 204 mls/hr Q6H PRN IV 10/28/17 18:15 11/27/17 18:14 Review of Systems Review of Systems Constitutional: No fever, No chills Eyes: No double vision Neurological: No dizzy Endocrine: No excessive thirst Gastrointestinal: + nausea, + vomiting, No abdominal pain Cardiovascular: No chest pain Respiratory: No shortness of breath Skin: No rash Musculoskeletal: No back pain Male : + weak stream, No painful urination, No blood in urine Physical Exam Vital Signs: Vital Signs Past 12 Hours Date Time Temp Pulse Resp B/P (MAP) Pulse Ox O2 Delivery O2 Flow Rate FiO2 10/29/17 09:14 66 152/85 (107) 10/29/17 08:00 Room Air 10/29/17 07:34 36.5 71 19 196/89 (124) 96 Room Air 10/29/17 05:22 69 144/77 (99) 10/29/17 04:00 Room Air 10/29/17 04:00 36.7 74 18 191/113 (139) 97 Room Air 10/28/17 23:59 Room Air Physical Exam: General Appearance: no apparent distress Eyes: bilateral eyes normal inspection ENT: hearing grossly normal Neck: no JVD Respiratory/Chest: no respiratory distress, no accessory muscle use Cardiovascular: no JVD Extremities: normal inspection Neurologic/Psychiatric: alert, normal mood/affect, oriented x 3 Skin: normal color Assessment & Plan Assessment & Plan A/P: Right hydronephrosis No evidence for stone. Uncertain if his hydro is secondary to a recently passed stone, infectious process or possibly chronic. Will avoid stent placement for now and observe. UC&S pending. Cr is normal at 1.25. Continue to monitor PVRs. I have discussed with Dr. Marie this morning. Will avoid surgical intervention at this time. Plan for hydration to see if urine output picks up. I suspect he is dehydrated secondary to his n/v. Can start Flomax if he continues to have difficulty voiding. Thanks for the consult. Will continue to follow along with primary service. Addendum -Patient seen and examined this evening He has had complete relief of his symptoms Reviewing his imaging, he does have mild dilation of the right renal pelvis, without significant dilation of the ureter More impressively, he seems to have significant perinephric inflammation on the right No clear stones or obstructing areas in his degree of dilation is relatively mild Given his relief of symptoms and the appearance of his kidney, I wonder if he may have sloughed papilla or some similar process causing transient obstruction Recommend against any intervention Simple observation is most appropriate with potential discharge home tomorrow assuming he continues to do well
[2017-10-29] MEDS: SUNITINIB MALATE 37.5 MG PO SCH ×2 (20:41→20:43)
--- NOTE | 2017-10-29 21:38 | Progress Note ---
Medicine Progress Note Date & Time of Visit: Oct 29, 2017 at 21:29. Subjective 61-year-old male with history of just tumor status post removal and on chemotherapy with sunitinib. Patient presented to the ER with right abdominal pain who was found to have an obstructive hydronephrosis on the right side with no ureteral calculus visualized. Overnight pain is improved and is minimal-he is not requiring pain medication at this time. He still reports nausea when sitting up and is undergoing a trial of food today. He also reports low urine output and dry mouth with clinical picture consistent with dehydration. Nausea and vomiting ever been reported for the last 2 days. The patient is up in [place] from [place] visiting [facility] for his daughter on a recruiting trip. Objective Last 8 Hrs Date Time Temp Pulse Resp B/P (MAP) Pulse Ox O2 Delivery O2 Flow Rate FiO2 10/29/17 19:50 36.4 64 18 129/77 (94) 98 Room Air 10/29/17 16:00 Room Air 10/29/17 15:20 36.5 69 18 148/83 (104) 98 Room Air 10/29/17 14:22 Room Air 10/29/17 13:57 36.4 75 20 153/82 (105) 99 Room Air 10/29/17 13:47 36.3 66 20 97 Physical Exam: GEN: WNWD, in no acute distress while lying supine, alert and appropriate HEENT: NC/AT, PERRL, normal sclerae, mucous membranes dry CARDIO: reg rate, S1/2 heard without m/g/r LUNGS: CTA bilaterally, no crackles, rales or wheezes, good diaphragmatic excursion ABD: soft, non-tender, non-distended, no rebound or guarding, normoactive bowel sounds EXTREMITY: RP and DP palpable 2+ bilat, no LE swelling or edema, extremities are warm and well-perfused NEURO: CN 2-12 grossly intact, no gross focal deficits MUSC: Moves all extremities equally, no gross focal deficits SKIN: warm and dry Laboratory Results: 10/29/17 06:04 10/29/17 06:04 Test 10/28/17 10:30 10/28/17 12:15 10/29/17 06:04 10/29/17 20:10 Immature Granulocyte % (Auto) 0.4 % White Blood Count 5.59 K/uL (4.8-10.8) Red Blood Count 3.97 M/uL (4.7-6.1) 4.03 M/uL (4.7-6.1) Hemoglobin 14.2 g/dL (14.0-18.0) Hematocrit 41.3 % (42-52) Mean Corpuscular Volume 104.0 fL (80-100) 103.0 fL (80-100) Mean Corpuscular Hemoglobin 35.8 pg (25-34) 35.0 pg (25-34) Mean Corpuscular Hemoglobin Concent 34.4 g/dl (32-36) 34.0 g/dl (32-36) Platelet Count 195 K/uL (130-400) Mean Platelet Volume 9.5 fL (7.4-10.4) 9.4 fL (7.4-10.4) Neutrophils (%) (Auto) 70.3 % Lymphocytes (%) (Auto) 22.0 % Monocytes (%) (Auto) 5.5 % Eosinophils (%) (Auto) 1.4 % Basophils (%) (Auto) 0.4 % Neutrophils # (Auto) 3.93 K/uL (1.4-6.5) Lymphocytes # (Auto) 1.23 K/uL (1.2-3.4) Monocytes # (Auto) 0.31 K/uL (0.11-0.59) Eosinophils # (Auto) 0.08 K/uL (0-0.5) Basophils # (Auto) 0.02 K/uL (0-0.2) Immature Granulocyte # (Auto) 0.02 K/uL (0.00-0.02) Prothrombin Time 10.0 SECONDS (9.0-12.0) Prothromb Time International Ratio 1.0 (0.9-1.1) Activated Partial Thromboplast Time 23.2 SECONDS (21.0-31.0) Partial Thromboplastin Ratio 0.9 Total Bilirubin 0.6 mg/dl (0.2-1) Direct Bilirubin 0.2 mg/dl (0-0.2) Aspartate Amino Transf (AST/SGOT) 37 U/L (15-37) Alanine Aminotransferase (ALT/SGPT) 44 U/L (12-78) Alkaline Phosphatase 61 U/L (45-117) Total Creatine Kinase 94 U/L (39-308) Creatine Kinase MB 1.1 ng/ml (0.5-3.6) Creatine Kinase MB Ratio 1.2 (0-3.0) Troponin I < 0.015 ng/ml (0-0.045) Total Protein 7.2 gm/dl (6.4-8.2) Albumin 3.5 gm/dl (3.4-5.0) Lipase 72 U/L (73-393) Urine Color DK YELLOW Urine Appearance CLEAR (CLEAR) Urine pH 5.5 (4.5-7.5) Urine Specific Hendricks 1.024 (1.000-1.030) Urine Protein 2+ (NEG) Urine Glucose (UA) TRACE (NEG) Urine Ketones 1+ (NEG) Urine Occult Blood 1+ (NEG) Urine Nitrite NEG (NEG) Urine Bilirubin NEG (NEG) Urine Urobilinogen POS (NEG) Urine Leukocyte Esterase NEG (NEG) Urine WBC (Auto) 1-5 /hpf (0-5) Urine RBC (Auto) 0-4 /hpf (0-4) Urine Hyaline Casts (Auto) 10-30 /lpf (0-5) Urine Epithelial Cells (Auto) 20-30 /lpf (0-5) Urine Bacteria (Auto) NEG (NEG) Urine Mucus PRESENT (NONE PRSENT) Urine Yeast (Auto) (NONE PRSENT) RDW Standard Deviation 50.5 fL (36.4-46.3) RDW Coefficient of Variation 13.4 % (11.5-14.5) Anion Gap 8.0 mmol/L (3-11) Est Creatinine Clear Calc Drug Dose 80.1 ml/min Estimated GFR () 71.6 Estimated GFR (Non- 61.8 BUN/Creatinine Ratio 15.5 (10-20) Calcium Level 8.5 mg/dl (8.5-10.1) Magnesium Level 1.8 mg/dl (1.8-2.4) Bedside Glucose 77 mg/dl (70-99) Date/Time Source Procedure Growth Status 10/28/17 16:30 Urine , Clean Catch Urine Culture - Preliminary NO GROWTH - LESS THAN 1,000 COLONIES/... Resulted Last 24 Hours Test 10/29/17 06:04 10/29/17 11:28 10/29/17 16:24 10/29/17 20:10 White Blood Count 6.63 K/uL Red Blood Count 4.03 M/uL Hemoglobin 14.1 g/dL Hematocrit 41.5 % Mean Corpuscular Volume 103.0 fL Mean Corpuscular Hemoglobin 35.0 pg Mean Corpuscular Hemoglobin Concent 34.0 g/dl RDW Standard Deviation 50.5 fL RDW Coefficient of Variation 13.4 % Platelet Count 155 K/uL Mean Platelet Volume 9.4 fL Sodium Level 139 mmol/L Potassium Level 3.7 mmol/L Chloride Level 106 mmol/L Carbon Dioxide Level 25 mmol/L Anion Gap 8.0 mmol/L Blood Urea Nitrogen 19 mg/dl Creatinine 1.25 mg/dl Est Creatinine Clear Calc Drug Dose 80.1 ml/min Estimated GFR () 71.6 Estimated GFR (Non- 61.8 BUN/Creatinine Ratio 15.5 Random Glucose 128 mg/dl Calcium Level 8.5 mg/dl Magnesium Level 1.8 mg/dl Bedside Glucose 103 mg/dl 124 mg/dl 77 mg/dl Assessment & Plan 61-year-old male with history of just tumor status post removal and on chemotherapy with sunitinib. Patient presented to the ER with right abdominal pain who was found to have an obstructive hydronephrosis on the right side with no ureteral calculus visualized. Overnight pain is improved and is minimal-he is not requiring pain medication at this time. He still reports nausea when sitting up and is undergoing a trial of food today. He also reports low urine output and dry mouth with clinical picture consistent with dehydration. Nausea and vomiting ever been reported for the last 2 days. The patient is up in [place] from [place] visiting [facility] for his daughter on a recruiting trip. 1. Renal colic secondary to obstruction of unknown etiology-possibly secondary to inflammation. Infection not obvious and pain patient is asymptomatic however urine culture is ending. Urology consulted appreciate assistance with differential. Pain is improved overnight 2. Nausea and vomiting-likely secondary to pain and discomfort. Continue supportive care at this time. Treat dehydration with IV fluid boluses today and continue to encourage p.o. intake. Zofran as needed. 3. Situational hypertension-likely secondary to pain and discomfort. This has resolved. 4. Hypokalemia-likely secondary to nausea, vomiting, poor p.o. intake. Resolved. 5. History of GI ST status post surgery on chemotherapy. Chemotherapy was restarted today. Chronic diarrhea reported with sunitinib therapy. Of note patient reports overdosing on antidiarrheals [id number] recently. Takes roughly twice the amount recommended. 6. GERD-continue PPI and Zantac as needed DVT prophylaxis-Lovenox Full code Disposition-likely to home in a.m. unless pain returns or clinical picture declines. Haylie Browne DO [facility] hospitalist Consultants: Urology-Dr. Campa Current Inpatient Medications: Current Inpatient Medications Medications (Trade) Dose Ordered Sig/Pina Route Start Time Stop Time Status Last Admin Dose Admin Ioversol (Optiray 320) 100 ml UD PRN IV 10/28/17 10:15 11/01/17 10:14 Ondansetron HCl (Zofran Inj) 4 mg Q6H PRN IV 10/28/17 16:00 11/27/17 15:59 10/29/17 04:19 4 MG Acetaminophen (Tylenol Tab) 650 mg Q4H PRN PO 10/28/17 16:15 11/27/17 16:14 10/29/17 07:17 650 MG Morphine Sulfate (MoRPHine SULFATE INJ) 2 mg Q4 PRN IV 10/28/17 16:15 11/11/17 16:14 Diphenoxylate HCl/ Atropine (Lomotil Tab) 1 tab QID PRN PO 10/28/17 16:45 11/27/17 16:44 Ranitidine HCl (zANTac TAB) 150 mg DAILY PO 10/29/17 09:00 11/28/17 08:59 10/29/17 08:20 150 MG Pantoprazole Sodium (Protonix Tab) 40 mg DAILY PO 10/29/17 09:00 11/28/17 08:59 10/29/17 08:20 40 MG Promethazine HCl 25 mg/Sodium Chloride 51 ml @ 204 mls/hr Q6H PRN IV 10/28/17 18:15 11/27/17 18:14 Non-Formulary Medication (Sunitinib Malate (Sutent)) 37.5 mg DAILY PO 10/30/17 08:00 11/29/17 08:59 10/29/17 20:41 37.5 MG
[2017-10-30] MEDS: ACETAMINOPHEN 325 MG TAB PO PRN (05:11)
[2017-10-30 06:07] LABS: HEMOGLOBIN 12.6 g/dL (14.0-18.0); MEAN CELL VOLUME 105.7 fL (80-100); MEAN CORPUSCULAR HEMOGLOBIN 34.1 pg (25-34); MEAN CORPUSCULAR HGB CONC 32.3 g/dl (32-36); MEAN PLATELET VOLUME 9.2 fL (7.4-10.4); PLATELET COUNT 158 K/uL (130-400); RED CELL DISTRIBUTION WIDTH CV 13.8 % (11.5-14.5); RED CELL DISTRIBUTION WIDTH SD 53.1 fL (36.4-46.3); WHITE BLOOD COUNT 6.43 K/uL (4.8-10.8)
[2017-10-30 06:50] LABS: CALCIUM 7.8 mg/dl (8.5-10.1); CREATININE 0.89 mg/dl (0.60-1.40); PHOSPHORUS 1.7 mg/dl (2.5-4.9); POTASSIUM 3.4 mmol/L (3.5-5.1)
[2017-10-30 07:14] VITALS: BP 125/84; PULSE 66; TEMP 36.6; O2SAT 95
[2017-10-30] MEDS ORDERED: ENOXAPARIN 40 MG/0.4 ML SYR SQ SCH (08:00)
[2017-10-30] MEDS: PANTOprazole SOD 40 MG TAB PO SCH (08:00)
[2017-10-30] MEDS: RANITIDINE HCL 150 MG TAB PO SCH (08:18)
--- NOTE | 2017-10-30 08:22 | Progress Note ---
Subjective Date of Service: Oct 30, 2017. Subjective Pt evaluation today including: conversation w/ patient, chart review, lab review Voiding: no voiding problems Pt denies pain this morning. Voiding without difficulty. UC&S preliminarily negative. N/V has resolved. Problem List Medical Problems: (1) Abdominal pain Status: Acute (2) Nausea Status: Acute (3) Obstruction of kidney Status: Acute (4) Vomiting Status: Acute Review of Systems Constitutional: No fever, No chills Respiratory: No shortness of breath Cardiac: No chest pain Abdomen: No pain, No nausea, No vomiting Male : No dysuria, No hematuria Heme: No abnormal bleeding/bruising Objective Vital Signs Date Time Temp Pulse Resp B/P (MAP) Pulse Ox O2 Delivery O2 Flow Rate FiO2 10/30/17 07:14 36.6 66 20 125/84 (98) 95 10/30/17 00:00 Room Air 10/29/17 22:57 36.7 75 20 115/70 (85) 97 Room Air 10/29/17 19:50 36.4 64 18 129/77 (94) 98 Room Air 10/29/17 16:00 Room Air 10/29/17 15:20 36.5 69 18 148/83 (104) 98 Room Air 10/29/17 14:22 Room Air 10/29/17 13:57 36.4 75 20 153/82 (105) 99 Room Air 10/29/17 13:47 36.3 66 20 97 10/29/17 12:00 Room Air 10/29/17 10:55 36.3 66 20 162/87 (112) 97 Room Air 10/29/17 09:14 66 152/85 (107) Physical Exam General Appearance: no apparent distress Eyes: normal inspection ENT: hearing grossly normal Neck: no JVD Respiratory/Chest: no respiratory distress, no accessory muscle use Cardiovascular: no JVD Extremities: normal inspection Neurologic/Psychiatric: alert, normal mood/affect, oriented x 3 Skin: normal color Laboratory Results Last 24 Hours Test 10/29/17 11:28 10/29/17 16:24 10/29/17 20:10 10/30/17 05:45 Bedside Glucose 103 mg/dl 124 mg/dl 77 mg/dl White Blood Count 6.43 K/uL Red Blood Count 3.69 M/uL Hemoglobin 12.6 g/dL Hematocrit 39.0 % Mean Corpuscular Volume 105.7 fL Mean Corpuscular Hemoglobin 34.1 pg Mean Corpuscular Hemoglobin Concent 32.3 g/dl RDW Standard Deviation 53.1 fL RDW Coefficient of Variation 13.8 % Platelet Count 158 K/uL Mean Platelet Volume 9.2 fL Sodium Level 140 mmol/L Potassium Level 3.4 mmol/L Chloride Level 108 mmol/L Carbon Dioxide Level 26 mmol/L Anion Gap 6.0 mmol/L Blood Urea Nitrogen 14 mg/dl Creatinine 0.89 mg/dl Est Creatinine Clear Calc Drug Dose 101.1 ml/min Estimated GFR () 107.0 Estimated GFR (Non- 92.3 BUN/Creatinine Ratio 15.8 Random Glucose 124 mg/dl Calcium Level 7.8 mg/dl Phosphorus Level 1.7 mg/dl Magnesium Level 1.7 mg/dl Test 10/30/17 07:35 Bedside Glucose 93 mg/dl Assessment and Plan A/P: Right hydronephrosis AFVSS. Per Dr. Campa's note yesterday: Addendum -Patient seen and examined this evening He has had complete relief of his symptoms Reviewing his imaging, he does have mild dilation of the right renal pelvis, without significant dilation of the ureter More impressively, he seems to have significant perinephric inflammation on the right No clear stones or obstructing areas in his degree of dilation is relatively mild Given his relief of symptoms and the appearance of his kidney, I wonder if he may have sloughed papilla or some similar process causing transient obstruction Recommend against any intervention Simple observation is most appropriate with potential discharge home tomorrow assuming he continues to do well Pain improved. Pt OK for d/c home today from perspective. Will avoid any surgical interventions at this time. Recommend he take all imaging and records with him and establish care with a urologist in [place] for f/u and further evaluation of hydronephrosis. Thanks for allowing us to participate in this pt's care.
[2017-10-30] MEDS ORDERED: IBUPROFEN 600 MG TAB PO ONE (09:15)
[2017-10-30] MEDS ORDERED: POTASSIUM CHLORIDE 20 MEQ TABCR PO ONE (09:15)
[2017-10-30] MEDS ORDERED: [UNRECOGNIZED DRUG - OTHER] IV SCH (09:45)
[2017-10-30] MEDS ORDERED: SODIUM PHOSPHATE IV SCH (09:45)
[2017-10-30] MEDS ORDERED: MAG SULFATE IV SCH (09:45)
[2017-10-30 11:46] VITALS: BP 150/76; PULSE 57; TEMP 36.3; O2SAT 96
--- NOTE | 2017-10-30 12:53 | Discharge Instructions ---
Discharge Instructions Date of Service Oct 30, 2017. Admission Reason for Admission: Obstruction Of Kidney, Vomiting Discharge Discharge Diagnosis / Problem: Ureteral obstruction with unilateral hydronephrosis, n/v-resolved. Discharge Goals Goal(s): Prevent Disease Progression Activity Recommendations Activity Limitations: per Instructions/Follow-up section . Instructions / Follow-Up Instructions / Follow-Up Please continue all medications as instructed paying close attention to recommended maximum allowances of antidiarrheal medications. Follow-up is highly recommended for a 33 mm mass seen within the right lobe of the liver. A metastatic deposit must be considered given the history of prior primary malignancy. 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 It is recommended for you to follow-up with your primary care doctor within 1 week of discharge from this hospital. Please discuss the need for a urology referral to ensure no further workup is needed for your right renal obstruction. It was a pleasure taking care of you! Call if you have any questions or problems. You can reach a [facility] hospitalist on duty at [facility] 24 hours a day by calling [phone]. Take care of yourself. Haylie Marie, [facility] Current [facility] Diet Patient's current hospital diet: Regular Diet Discharge Diet Recommended Diet: Regular Diet Procedures Procedures Performed: None Pending Studies Studies pending at discharge: no Medical Emergencies . Who to Call and When: Medical Emergencies: If at any time you feel your situation is an emergency, please call 911 immediately. . Non-Emergent Contact Non-Emergency issues call your: Primary Care Provider . . "Provider Documentation" section prepared by Haylie Marie. .
[2017-10-30 12:59] VITALS: BP 150/76; PULSE 57; TEMP 36.3; O2SAT 96
--- NOTE | 2017-10-30 13:04 | Discharge Summary ---
Discharge Summary Date of Service Oct 30, 2017. Discharge Summary Admission Date: Oct 28, 2017 at 16:01 Discharge Date: Oct 30, 2017 Discharge Disposition: Home Principal Diagnosis: Renal colic secondary to right ureteral obstruction of unknown etiology Nausea and vomiting likely secondary to pain and discomfort-resolved Situational hypertension likely secondary to pain and discomfort-resolved Hypokalemia likely secondary to nausea and vomiting with intake-resolved History of GI ST status post surgery on chemotherapy Hypomagnesemia-replaced Hypophosphatemia-replaced GERD Procedures: None Vaccinations: None Consultations: Urology-Dr. Campa Pending Studies/Follow-Up: See instructions below Medication Reconciliation Continued Medications: Diphenoxylate/Atropine (Diphenoxylate/Atropine 2.5-0.025 mg) 1 Tab Tab 1 TAB PO QID PRN for Diarrhea Omeprazole (Prilosec) 40 Mg Cap 40 MG PO DAILY, CAP Ranitidine (Zantac) 150 Mg Tab 150 MG PO DAILY for Indigestion, TAB Sildenafil Citrate (Viagra) 100 Mg Tab 100 MG PO PRN for sexual intercourse, TAB Sunitinib Malate (Sutent) 37.5 Mg Cap 37.5 MG PO DAILY Admission Information HPI (per Admitting provider): Pt is 61 y/o M with PMH GIST stromal tumor s/p removal in 2015 and current oral chemo treatment presented to ER with complaint right-sided abdominal pain and vomiting that started this morning. Patient states that last week noticed some trouble initiating urine stream, which seemed worse today. Patient states this morning developed nauseated and was vomiting, and he was on toilet trying to have BM when he started to feel lightheaded, vision neck he felt paresthesias in bilateral arms and diaphoretic and felt like was breathing faster and SOB and GLEASON. Patient states these symptoms lasted a couple minutes and then resolved and no recurrent symptoms. Denies syncopal episode. Pt from [place] and follows with [facility]. Oncologist - Dr Karmen Costello. PCP: Dr Rosales. Patient s/p removal of tumor and partial removal of part of stomach and liver. Patient's reports known "spots" on liver and spine seen on MRI in May 2017. Reports patient was to have follow-up in the next 1-2 weeks with repeat MRI to reevaluate after pt has been on sunitinib. Reports since surgery and chemo c/o chronic diarrhea and is on Lomotil and uses regularly. Denies increased diarrhea. Denies melena, hematochezia. States has otherwise been doing ok and eating and drinking ok until today. Denies known fever. Reports 2 weeks ago had URI symptoms with chills, cough, rhinorrhea which resolved. Denies dysuria, hematuria, urinary urgency or frequency, neck pain, CP, orthopnea, palpitations,choking, extremity edema, rashes. Physical Exam (per Admitting): General Appearance: + obese Head: normocephalic, atraumatic Eyes: normal inspection, sclerae normal ENT: hearing grossly normal, pharynx normal, + pertinent finding (mucous membranes moist) Neck: supple, trachea midline Respiratory/Chest: no respiratory distress, no accessory muscle use, + decreased breath sounds (no rales, rhonchi, wheezing) Cardiovascular: regular rate, rhythm, + pertinent finding (+murmur) Abdomen/GI: normal bowel sounds, soft, + pertinent finding (abdomen and flank non-tender to palpation at this time) Extremities/Musculoskelatal: no calf tenderness, normal capillary refill, no pedal edema Neurologic/Psych: alert, normal mood/affect, oriented x 3 Skin: normal color, warm/dry Hospital Course 61-year-old male with history of just tumor status post removal and on chemotherapy with sunitinib. Patient presented to the ER with right abdominal pain who was found to have an obstructive hydronephrosis on the right side with no ureteral calculus visualized. Overnight pain is improved and is minimal-he is not requiring pain medication at this time. He still reports nausea when sitting up and is undergoing a trial of food today. He also reports low urine output and dry mouth with clinical picture consistent with dehydration. Nausea and vomiting ever been reported for the last 2 days. The patient is up in [place] from [place] visiting [facility] for his daughter on a recruiting trip. 1. Renal colic secondary to obstruction of unknown etiology-possibly secondary to inflammation. Infection not obvious and pain patient is asymptomatic however urine culture is ending. Urology consulted appreciate assistance with differential. Pain is improved overnight 2. Nausea and vomiting-likely secondary to pain and discomfort. Continue supportive care at this time. Treat dehydration with IV fluid boluses today and continue to encourage p.o. intake. Zofran as needed. 3. Situational hypertension-likely secondary to pain and discomfort. This has resolved. 4. Hypokalemia-likely secondary to nausea, vomiting, poor p.o. intake. Resolved. 5. History of GI ST status post surgery on chemotherapy. Chemotherapy was restarted today. Chronic diarrhea reported with sunitinib therapy. Of note patient reports overdosing on antidiarrheals [id number] recently. Takes roughly twice the amount recommended. 6. GERD-continue PPI and Zantac as needed DVT prophylaxis-Lovenox Full code Disposition-likely to home in a.m. unless pain returns or clinical picture declines. DO Adams Ramirez chetna Total time spent on discharge = 60 minutes This includes examination of the patient, discharge planning, medication reconciliation, and communication with other providers. [place] [address] Discharge Medical Patient Name: Macario Patterson Unit Number: [id number] Date of : 1955 Patient Status: Admitted Inpatient Attending Doctor: Haylie Marie DO DI: Medical v5 Discharge Instructions Date of Service Oct 30, 2017. Admission Reason for Admission: Obstruction Of Kidney, Vomiting Discharge Discharge Diagnosis / Problem: Ureteral obstruction with unilateral hydronephrosis, n/v-resolved. Discharge Goals Goal(s): Prevent Disease Progression Activity Recommendations Activity Limitations: per Instructions/Follow-up section . Instructions / Follow-Up Instructions / Follow-Up Please continue all medications as instructed paying close attention to recommended maximum allowances of antidiarrheal medications. Follow-up is highly recommended for a 33 mm mass seen within the right lobe of the liver. A metastatic deposit must be considered given the history of prior primary malignancy. 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 It is recommended for you to follow-up with your primary care doctor within 1 week of discharge from this hospital. Please discuss the need for a urology referral to ensure no further workup is needed for your right renal obstruction. It was a pleasure taking care of you! Call if you have any questions or problems. You can reach a [facility] Hospitalist on duty at [facility] 24 hours a day by calling [phone]. Take care of yourself. Haylie Rio, DO [facility] Hospitalist Current Hospital Diet Patient's current hospital diet: Regular Diet Discharge Diet Recommended Diet: Regular Diet Procedures Procedures Performed: None Pending Studies Studies pending at discharge: no Medical Emergencies . Who to Call and When: Medical Emergencies: If at any time you feel your situation is an emergency, please call 911 immediately. . Non-Emergent Contact Non-Emergency issues call your: Primary Care Provider . . "Provider Documentation" section prepared by Haylie Marie. . Additional Copies To Karmen Costello MD
== END 2017-10-30 14:18 | disposition home or self-care (01) | DRG 699 ==
LOC: EDBD 09:47 → C.EDA 09:50 → C.2T 16:01 → ENRESERV 16:14 → C.4E 10-29 12:00 → ENRESERV 10-29 12:21
PROVIDERS: ADMIT Internal Medicine; ATTEND Hospitalist
DX: N28.89 Other specified disorders of kidney and ureter (principal); C49.A0 Gastrointestinal stromal tumor, unspecified site; R03.0 Elevated blood-pressure reading, without diagnosis of hypertension; N23 Unspecified renal colic; R55 Syncope and collapse; K21.9 Gastro-esophageal reflux disease without esophagitis; E86.0 Dehydration; E87.6 Hypokalemia; E83.39 Other disorders of phosphorus metabolism; Z90.3 Acquired absence of stomach [part of]; Z90.49 Acquired absence of other specified parts of digestive tract; Z88.5 Allergy status to narcotic agent; Z87.891 Personal history of nicotine dependence; Z83.3 Family history of diabetes mellitus; Z84.1 Family history of disorders of kidney and ureter; Z82.49 Family history of ischemic heart disease and other diseases of the circulatory system